=== PATIENT | male | born 1950 | race Caucasian/White ===

== ENCOUNTER → 2016-05-08 | Day surgery (SDC) | payer OTHER ==
[~2016-05-08] VITALS: Ht 175.3 cm; Wt 93.0 kg
[~2016-05-08] MED LIST: ADVAIR 100-501 EACH INH; CO Q-10200 MG PO; METOPROLOL SUCC50 M2 PO; VALSARTAN-HCTZ1 EAC1 PO
--- NOTE | 2016-05-08 12:56 | Operative Report ---
Operative/Inv Procedure Report Surgery Date: 05/08/16 Name of Procedure: Rectal exam under anesthesia Aborted TAMIS (transanal minimally invasive surgery) excision of rectal mass Pre-Operative Diagnosis: Rectal cancer Post-Operative Diagnosis: Rectal cancer Estimated Blood Loss: scant Surgeon/Investigation Specialist: MONICA MAX JR, DO Anesthesia: laryngeal mask airway Monitors: Per routine Specimens: None Complications: None Condition: Good Operative Indication: This is a 66-year-old gentleman who was recently found to have a mass in the rectum. This mass was biopsy proven to be an adenocarcinoma. A second endoscopic procedure was performed with the tension of endoscopic removal of this lesion. During this seizure it was decided endoscopic removal was contraindicated and an endoscopic ultrasound was performed. The lesion was ultrasound staged as uT1 possibly T2 N0, taking for clinical stage I tumor. Patient was referred to me for evaluation. After lengthy discussion of options we decided on transanal excision of the mass, this was based on our impression that this was an early invasive cancer. Operative/Procedure Note Note: Patient did and enema regimen prior to coming to the hospital. He presented to [facility] was taken into the operating room. He was placed on the OR table underwent induction of general anesthesia and placement of laryngeal mask airway. A Zarate catheter was placed and he was converted to lithotomy position in [facility]. The perineum was prepped and draped in usual fashion. Next a block was performed using quarter percent Marcaine with epinephrine and a total of 30 mL was injected. The lesion was palpable at the tip of my finger in the anterior left rectum. The tumor on exam felt somewhat fixed. The penis port was then inserted in the rectum was insufflated to 15 mmHg. The lesion was easily visible but I did not have complete distention of the rectum so that insufflation was increase to 70 mmHg. At this point had excellent visualization. The inferior edge of the lesion was about 10 cm from the anal verge. The diameter of the lesion was at least 3 cm. The center portion of the lesion was deeply ulcerated. As I try to get traction on the wall and make my initial incision it became apparent to me that this was a deeply fixed lesion. My clinical impression at this point as this was certainly not a T1 lesion and at least a T2 lesion possibly T3 lesion. Therefore I felt transanal excision was contraindicated. I was concerned that I would not achieve negative deep margins and at the same time finally important tissue planes. So I decided to abort this approach. The port was removed. The perineum was cleansed and dried. The Zarate was removed. The patient was allowed to slowly wake up and then extubated in the operating room. At the end this procedure all needle sponges and instruments were accounted for Findings: Clinically greater than T1 rectal mass Transanal procedures contraindicated Discharge Disposition: PACU Additional Comments: Patient will follow-up in my office for additional planning. Patient will clearly need a low anterior resection which will also give us the ability to harvest lymph nodes. Consideration of neoadjuvant radiation should be made I will discuss this further with his oncologist and with radiation oncology
== END ==
LOC: STS 02:40
DX: C20 Malignant neoplasm of rectum (principal); Z53.09 Procedure and treatment not carried out because of other contraindication; I10 Essential (primary) hypertension; E78.5 Hyperlipidemia, unspecified; J45.909 Unspecified asthma, uncomplicated
CPT/HCPCS: C9399; J0690; J2250